=== PATIENT | female | born 1980 | race Two or more races ===

== ENCOUNTER 2018-07-06 18:05 | Emergency (ER) | payer BC, MEDICAID ==
[2018-07-06 18:14] VITALS: BP 129/77
--- NOTE | 2018-07-07 00:54 | ER Document Report ---
Doctor's Note Notes: 07/07/18 00:54 Patient eloped prior to my evaluation.
== END 2018-07-06 20:45 | disposition left against medical advice (07) ==
LOC: ER 18:05
DX: Z53.21 Procedure and treatment not carried out due to patient leaving prior to being seen by health care provider (principal); N93.9 Abnormal uterine and vaginal bleeding, unspecified

== ENCOUNTER 2019-11-14 12:37 | Emergency (ER) | payer BC ==
[2019-11-14 12:44] VITALS: BP 133/79
[2019-11-14 13:29] LABS: APPEARANCE,URINE SLIGHTLY-CLOUDY; BILIRUBIN,URINE NEGATIVE (NEGATIVE); COLOR,URINE YELLOW; GLUCOSE, URINE NEGATIVE (NEGATIVE); KETONES,URINE TRACE mg/dL (NEGATIVE); PROTEIN,URINE 30 mg/dL (NEGATIVE); URINE SPECIFIC GRAVITY 1.031; UROBILINOGEN,URINE NEGATIVE mg/dL (<2.0)
[2019-11-14 13:35] LABS: A TYPE INFLUENZA AG NEGATIVE (NEGATIVE); B INFLUENZA AG NEGATIVE (NEGATIVE)
[2019-11-14] MEDS ORDERED: DEXAMETHASONE SOD PHOS INJ 10 MG/1 ML VIAL IM ONE (13:56)
[2019-11-14] MEDS ORDERED: METHYLPREDNISOLONE ACETATE INJ 40 MG/1 ML ML IM ONE ×2 (13:56→14:30)
--- NOTE | 2019-11-14 13:59 | ER Document Report ---
HPI - HPI Time Seen by Provider: 11/14/19 12:46 Onset: Other - This 39-year-old female presented emergency room today stating she had generalized aches cough nasal congestion approximately 3 days has not had any exposure to anybody with the coronavirus.travel outside the country afebrile. Pain Level: 2 Associated Symptoms: Rhinnorhea - CONSTITUTIONAL Constitutional: DENIES: Fever, Chills - REPRODUCTIVE Reproductive: DENIES: : Past Medical History - Social History Smoking Status: Never Smoker Chew tobacco use (# tins/day): No Frequency of alcohol use: None Drug Abuse: None Family History: None Patient has suicidal ideation: No Patient has homicidal ideation: No Renal/ Medical History: Denies: Hx Peritoneal Dialysis Vertical Provider Document - CONSTITUTIONAL Agree With Documented VS: Yes - INFECTION CONTROL TRAVEL OUTSIDE OF THE [place] IN LAST 30 DAYS: No Course - Vital Signs Vital signs: Temp Pulse Resp BP Pulse Ox 98.1 F 115 H 16 133/79 H 98 11/14/19 12:43 11/14/19 12:43 11/14/19 12:43 11/14/19 12:43 11/14/19 12:43 - Laboratory Laboratory results interpreted by me: 11/14/19 12:55 Urine Protein 30 H Urine Ketones TRACE H Urine Ascorbic Acid 20 H Discharge - Discharge Clinical Impression: URI (upper respiratory infection) Qualifiers: URI type: unspecified URI Qualified Code(s): J06.9 - Acute upper respiratory infection, unspecified Disposition: HOME, SELF-CARE Instructions: Viral Syndrome ([facility])
== END 2019-11-14 14:10 | disposition home or self-care (01) ==
LOC: ER 12:37
DX: J06.9 Acute upper respiratory infection, unspecified (principal); M79.10 Myalgia, unspecified site; R09.81 Nasal congestion
CPT/HCPCS: 99283; 96372; 87070; 87880; 81001; 87804; J1030; J1100